=== PATIENT | male | born 1940 | race Caucasian/White ===

== ENCOUNTER → 2019-07-13 | Outpatient (CLI) | payer OTHER ==
[~2019-07-13] MED LIST: AMIO200T5 PO; METO25TA6 PO; RIVA20TA PO
== END | disposition home or self-care (01) ==
LOC: SHCH 10:50
PROVIDERS: ATTEND Internal Medicine Cardiovascular Disease
DX: I31.3 Pericardial effusion (noninflammatory) (principal); I48.0 Paroxysmal atrial fibrillation
CPT/HCPCS: 93306

== ENCOUNTER 2020-10-13 08:30 | Observation (INO) | payer OTHER ==
[~2020-10-13] VITALS: Ht 180.3 cm; Wt 82.0 kg
[~2020-10-13 08:30] MED LIST changes: -AMIO200T5 PO; +AMIO200T6 PO
[2020-10-13] MEDS ORDERED: AMIODARONE HCL 50 MG/ML 3 ML VIAL ONE (08:54)
[2020-10-13] MEDS ORDERED: ASPIRIN 325 MG TABLET ONE (08:54)
[2020-10-13 09:10] LABS: BASOPHILS % (AUTO) 1.6 % (0.0-5.0); EOSINOPHILS % (AUTO) 5.4 % (0.0-8.0); HEMATOCRIT 45.4 % (42-54); LYMPHOCYTES % (AUTO) 21.2 % (21.0-51.0); MEAN CORPUSCULAR HEMOGLOBIN 30.2 pg (27.0-33.0); MEAN CORPUSCULAR HGB CONC 33.7 g/dL (32.0-36.0); MEAN CORPUSCULAR VOLUME 89.7 fL (79-99); MONOCYTES % (AUTO) 9.7 % (3.0-13.0); PLATELET COUNT (AUTO) 151 K/uL (130-400); RED BLOOD CELL COUNT(AUTO) 5.06 MIL/uL (4.50-6.20); RED CELL DISTRIBUTION WIDTH 13.2 % (11.0-15.5); WHITE BLOOD COUNT (AUTO) 6.3 K/uL (4.8-10.8)
[2020-10-13 09:32] LABS: ALBUMIN 3.9 g/dL (3.5-5.0); B-TYPE NATRIURETIC PEPTIDE 29 pg/mL (0-100); BILIRUBIN,TOTAL 0.4 mg/dL (0.2-1.0); CREATININE 1.1 mg/dL (0.5-1.5); TOTAL PROTEIN, SERUM 7.3 g/dL (6.0-8.3)
[2020-10-13 09:42] LABS: PARTIAL THROMBOPLASTIN TIME 33.6 SEC (26.3-35.5)
[2020-10-13 10:04] LABS: INR 1.1 (0.85-1.15); PROTHROMBIN TIME 11.9 SEC (9.6-11.6)
[2020-10-13 10:07] LABS: MAGNESIUM 2.1 mg/dL (1.80-2.40); PHOSPHORUS 3.1 mg/dL (2.5-4.9)
[2020-10-13] MEDS: METOPROLOL TARTRATE 25 MG TAB PO SCH (11:15)
[2020-10-13] MEDS ORDERED: METOPROLOL TARTRATE 25 MG TAB ONE ×2 (12:55→20:29)
[2020-10-13] MEDS ORDERED: ONDANSETRON HCL 4 MG/2 ML VIAL IV PRN (13:45)
[2020-10-13] MEDS ORDERED: ACETAMINOPHEN 325 MG TAB PO PRN ×2 (13:45)
[2020-10-13 15:14] LABS: APPEARANCE,URINE Clear (CLEAR); BILIRUBIN,URINE Negative (NEGATIVE); COLOR,URINE Yellow (YELLOW); GLUCOSE, URINE (UA) Negative (NEGATIVE); KETONES,URINE Negative (NEGATIVE); LEUKOCYTE ESTERASE ,URINE Trace (NEGATIVE); NITRATE,URINE Negative (NEGATIVE); OCCULT BLOOD,URINE Small (NEGATIVE); PROTEIN,URINE Negative (NEGATIVE); UROBILINOGEN,URINE 0.2 mg/dL (0.2-1.0)
[2020-10-13 15:33] LABS: BACTERIA,URINE Rare /HPF (None Seen); MUCUS,URINE Rare LPF (None Seen); SQUAMOUS EPITHELIAL CELL,UR Few /HPF (0-2)
[2020-10-13 15:34] LABS: TRANSITIONAL EPI CELLS,URINE Rare /HPF (None Seen)
[2020-10-13] MEDS ORDERED: FAMOTIDINE/PF 20 MG/2 ML VIAL IV ONE (20:30)
[2020-10-13] MEDS ORDERED: METOPROLOL TARTRATE 25 MG TAB PO SCH (21:00)
[2020-10-13] MEDS: APIXABAN 5 MG TABLET PO SCH (21:00)
[2020-10-13] MEDS: FAMOTIDINE/PF 20 MG/2 ML VIAL IV SCH (21:00)
[2020-10-13] MEDS ORDERED: DIPHENHYDRAMINE HCL 25 MG CAPSULE ONE (21:01)
[2020-10-13] MEDS ORDERED: DIPHENHYDRAMINE HCL 25 MG CAPSULE PO PRN (21:15)
[2020-10-13 23:40] VITALS: BP 140/70
[2020-10-14 00:04] VITALS: BP 122/72
[2020-10-14] MEDS ORDERED: CYAN25002 (00:07)
[2020-10-14] MEDS ORDERED: FLUT16H NASAL (00:07)
[2020-10-14] MEDS ORDERED: FAMO20TA8 PO (00:07)
[2020-10-14] MEDS ORDERED: OMEP-420 PO (00:07)
[2020-10-14] MEDS ORDERED: TAMS-1 PO (00:07)
[2020-10-14] MEDS ORDERED: APIX5TAB PO (00:07)
[2020-10-14] MEDS ORDERED: DOCU100C33 PO (00:07)
[2020-10-14] MEDS ORDERED: FERR-82 PO (00:07)
[2020-10-14 00:49] LABS: CREATINE KINASE, TOTAL 145 U/L (21-232); MYOGLOBIN 42 ng/mL (10-92); TROPONIN I < 0.04 ng/mL (0.00-0.06)
[2020-10-14 04:04] VITALS: BP 113/65
[2020-10-14 06:30] LABS: CREATINE KINASE, TOTAL 132 U/L (21-232); MYOGLOBIN 55 ng/mL (10-92); TROPONIN I < 0.04 ng/mL (0.00-0.06)
[2020-10-14 08:00] VITALS: BP 120/68
[2020-10-14 08:27] LABS: CREATININE 1.2 mg/dL (0.5-1.5); MAGNESIUM 2.1 mg/dL (1.80-2.40); POTASSIUM 4.3 mmol/L (3.5-5.1)
[2020-10-14] MEDS ORDERED: AMIODARONE HCL 200 MG TABLET PO SCH (09:00)
[2020-10-14] MEDS: FAMOTIDINE/PF 20 MG/2 ML VIAL IV SCH (09:00)
[2020-10-14] MEDS: METOPROLOL TARTRATE 25 MG TAB PO SCH (09:38)
[2020-10-14] MEDS: APIXABAN 5 MG TABLET PO SCH (09:38)
[2020-10-14] MEDS ORDERED: DILTIAZEM HCL 120 MG CAP.SR.24H PO SCH (10:51)
[2020-10-14] MEDS ORDERED: DILT120C12 PO (11:01)
[2020-10-14 11:41] VITALS: BP 105/66
== END 2020-10-14 15:09 | disposition home or self-care (01) ==
LOC: EDH 08:30 → INTOOBSV 13:33 → EDHIP 13:33 → 4BH 23:21
PROVIDERS: ADMIT Internal Medicine; ATTEND Internal Medicine
DX: R07.89 Other chest pain (principal); I48.0 Paroxysmal atrial fibrillation; I10 Essential (primary) hypertension; N40.0 Benign prostatic hyperplasia without lower urinary tract symptoms; K21.9 Gastro-esophageal reflux disease without esophagitis; D64.9 Anemia, unspecified; K22.70 Barrett's esophagus without dysplasia; I31.3 Pericardial effusion (noninflammatory); Z87.891 Personal history of nicotine dependence; Z79.899 Other long term (current) drug therapy
CPT/HCPCS: 36415 ×2; 71045; 80048; 80053; 82550 ×3; 83735 ×2; 83874 ×2; 83880; 84100; 84484 ×3; 85025; 85610; 85651; 85730; 86140; 93005; 93306; 93356; 99285; G0378 ×25; J0282; J3490 ×2; Q0163; 81001

== ENCOUNTER → 2020-10-27 | Outpatient (CLI) | payer OTHER ==
[~2020-10-27] MED LIST changes: +APIX5TAB PO; +CYAN25002; +DILT120C12 PO; +DOCU100C33 PO; +FERR-82 PO; +FLUT16H NASAL; -METO25TA6 PO; +OMEP-420 PO; -RIVA20TA PO; +TAMS-1 PO
== END | disposition home or self-care (01) ==
LOC: RAH 18:20
PROVIDERS: ATTEND Internal Medicine Cardiovascular Disease
DX: Z13.6 Encounter for screening for cardiovascular disorders (principal)
CPT/HCPCS: 75571

== ENCOUNTER → 2020-12-19 | Outpatient (CLI) | payer OTHER ==
[~2020-12-19] VITALS: Ht 180.3 cm; Wt 83.5 kg
[~2020-12-19] MED LIST changes: +REGADENOSON 0.4 MG/5 ML PF SYG IVP SCH
== END | disposition home or self-care (01) ==
LOC: SHCH 08:42
PROVIDERS: ATTEND Internal Medicine Cardiovascular Disease
DX: I20.9 Angina pectoris, unspecified (principal); I48.0 Paroxysmal atrial fibrillation
CPT/HCPCS: 78452; 93017; 96374; A9500 ×2; J2785

== ENCOUNTER 2021-08-09 05:56 | Day surgery (SDC) | payer OTHER ==
[2021-08-02 15:05] LABS: BASOPHILS % (AUTO) 1.3 % (0.0-5.0); EOSINOPHILS % (AUTO) 2.4 % (0.0-8.0); HEMATOCRIT 43.2 % (42-54); MEAN CORPUSCULAR HEMOGLOBIN 30.1 pg (27.0-33.0); MEAN CORPUSCULAR HGB CONC 33.1 g/dL (32.0-36.0); MEAN CORPUSCULAR VOLUME 90.9 fL (79-99); MONOCYTES % (AUTO) 9.2 % (3.0-13.0); NEUTROPHILS % (AUTO) 62.2 % (40.0-77.0); PLATELET COUNT (AUTO) 159 K/uL (130-400); RED BLOOD CELL COUNT(AUTO) 4.75 MIL/uL (4.50-6.20); WHITE BLOOD COUNT (AUTO) 6.3 K/uL (4.8-10.8)
[2021-08-02 15:14] LABS: INR 1.05 (0.85-1.15); PROTHROMBIN TIME 11.4 SEC (9.6-11.6)
[2021-08-02 15:16] LABS: PARTIAL THROMBOPLASTIN TIME 31.9 SEC (26.3-35.5)
[2021-08-02 15:23] LABS: ALBUMIN 3.9 g/dL (3.5-5.0); BILIRUBIN,TOTAL 0.4 mg/dL (0.2-1.0); CREATININE 0.9 mg/dL (0.5-1.5); POTASSIUM 3.9 mmol/L (3.5-5.1); TOTAL PROTEIN, SERUM 7.2 g/dL (6.0-8.3)
[2021-08-08 14:12] VITALS: BP 145/72
[2021-08-09] VITALS (14 sets, daily range): BP systolic 116–147; BP diastolic 63–83
[~2021-08-09] VITALS: Ht 180.3 cm; Wt 81.7 kg
[~2021-08-09 05:56] MED LIST changes: -AMIO200T6 PO; +AMIO200T68 PO; -APIX5TAB PO; -DILT120C12 PO; -FLUT16H NASAL; +METH-812 PO; -REGADENOSON 0.4 MG/5 ML PF SYG IVP SCH; +ROPI1TAB13 PO
[2021-08-09] MEDS: LEVOFLOXACIN 500 MG/D5W 100 ML 100 ML IV SCH ×2 (06:00→08:09)
[2021-08-09] MEDS ORDERED: LACTATED RINGERS 1000ML 1,000 ML IV ONE (07:18)
[2021-08-09] MEDS ORDERED: LIDOCAINE PF 100MG/5ML (2%) SYRINGE 5ML ONE (07:28)
[2021-08-09] MEDS ORDERED: PROPOFOL 10 MG/ML 20ML VIAL IV ONE (07:28)
[2021-08-09] MEDS ORDERED: FENTANYL CITRATE PF 50 MCG/1 ML 2ML VIAL ONE (07:28)
[2021-08-09] MEDS ORDERED: IOHEXOL-350 50ML VIAL IV ONE (07:52)
[2021-08-09] MEDS ORDERED: MIDAZOLAM HCL 1 MG/ML 2ML VIAL ONE (07:59)
[2021-08-09] MEDS ORDERED: EPHEDRINE SULFATE 50 MG/ML AMPULE ONE (08:19)
[2021-08-09] MEDS ORDERED: GLYCOPYRROLATE 1 MG/5 ML SYRINGE ONE (08:26)
[2021-08-09] MEDS ORDERED: 0.9%NACL 10ML VIAL ONE (09:00)
[2021-08-09] MEDS ORDERED: PHENYLEPHRINE HCL 10 MG/ML 1ML VIAL IV ONE (09:00)
[2021-08-10] MEDS ORDERED: DICY20TA2 PO (05:56)
== END 2021-08-09 11:09 | disposition home or self-care (01) ==
LOC: DAH 05:56
PROVIDERS: ATTEND Urology Pediatric Urology
DX: C67.4 Malignant neoplasm of posterior wall of bladder (principal); C67.2 Malignant neoplasm of lateral wall of bladder; Z20.822 Contact with and (suspected) exposure to COVID-19; N35.812 Other bulbous urethral stricture, male; N28.1 Cyst of kidney, acquired; I48.91 Unspecified atrial fibrillation; K21.9 Gastro-esophageal reflux disease without esophagitis; M81.0 Age-related osteoporosis without current pathological fracture; Z79.899 Other long term (current) drug therapy; Z98.890 Other specified postprocedural states; Z79.01 Long term (current) use of anticoagulants
CPT/HCPCS: 36415; 52235; 52276; 71045; 74420; 80053; 85025; 85610; 85730; 87071; 87088; 87205; 87635; 93005; A4215 ×2; A4221; A4222; A4223; A4335; A4354; A4358; A4600; A4663; A6260; C1758 ×2; C1769; C9803; J2001; J2250; J2370; J2704; J3010; J3490 ×2; J7120; Q9967; J1956

== ENCOUNTER 2021-09-20 05:43 | Day surgery (SDC) | payer OTHER ==
[2021-09-14 13:26] LABS: BASOPHILS % (AUTO) 1.1 % (0.0-5.0); EOSINOPHILS % (AUTO) 2.6 % (0.0-8.0); HEMATOCRIT 42.1 % (42-54); LYMPHOCYTES % (AUTO) 21.8 % (21.0-51.0); MEAN CORPUSCULAR HEMOGLOBIN 29.3 pg (27.0-33.0); MEAN CORPUSCULAR HGB CONC 31.8 g/dL (32.0-36.0); MEAN CORPUSCULAR VOLUME 91.9 fL (79-99); MONOCYTES % (AUTO) 10.2 % (3.0-13.0); NEUTROPHILS % (AUTO) 63.3 % (40.0-77.0); PLATELET COUNT (AUTO) 211 K/uL (130-400); RED BLOOD CELL COUNT(AUTO) 4.58 MIL/uL (4.50-6.20); RED CELL DISTRIBUTION WIDTH 13.5 % (11.0-15.5); WHITE BLOOD COUNT (AUTO) 6.2 K/uL (4.8-10.8)
[2021-09-14 13:37] LABS: INR 1.08 (0.85-1.15); PROTHROMBIN TIME 11.7 SEC (9.6-11.6)
[2021-09-14 13:38] LABS: PARTIAL THROMBOPLASTIN TIME 30.5 SEC (26.3-35.5)
[2021-09-14 13:39] LABS: ALBUMIN 3.8 g/dL (3.5-5.0); BILIRUBIN,TOTAL 0.4 mg/dL (0.2-1.0); TOTAL PROTEIN, SERUM 7.1 g/dL (6.0-8.3)
[2021-09-19 09:20] VITALS: BP 143/74
[~2021-09-20] VITALS: Ht 180.3 cm; Wt 82.7 kg
[2021-09-20] VITALS (14 sets, daily range): BP systolic 127–144; BP diastolic 65–81
[~2021-09-20 05:43] MED LIST changes: -METH-812 PO
[2021-09-20] MEDS ORDERED: LACTATED RINGERS 1000ML 1,000 ML IV ONE (06:56)
[2021-09-20] MEDS: LEVOFLOXACIN 500 MG/D5W 100 ML 100 ML IV SCH ×2 (07:05→08:00)
[2021-09-20] MEDS ORDERED: ONDANSETRON 4MG INJ ONE (07:38)
[2021-09-20] MEDS ORDERED: SUCCINYLCHOLINE 200MG/10ML SYR ONE (07:38)
[2021-09-20] MEDS ORDERED: NEOSTIGMINE 5MG/5ML SYR IV ONE (07:38)
[2021-09-20] MEDS ORDERED: GLYCOPYRROLATE 1 MG/5 ML SYRINGE ONE (07:38)
[2021-09-20] MEDS ORDERED: MIDAZOLAM HCL 1 MG/ML 2ML VIAL ONE (07:38)
[2021-09-20] MEDS ORDERED: LIDOCAINE PF 100MG/5ML (2%) SYRINGE 5ML ONE (07:38)
[2021-09-20] MEDS ORDERED: DEXAMETHASONE SOD PHOSPHATE 10MG/ML 1ML VIAL ONE (07:38)
[2021-09-20] MEDS ORDERED: FENTANYL CITRATE PF 50 MCG/1 ML 2ML VIAL ONE ×2 (07:39→09:32)
[2021-09-20] MEDS ORDERED: PROPOFOL 10 MG/ML 20ML VIAL IV ONE (07:39)
[2021-09-20] MEDS ORDERED: ROCURONIUM 10MG/1ML SYR 10 MG/ML ML ONE (07:39)
[2021-09-20] MEDS ORDERED: FAMOTIDINE 20MG VIAL IV ONE (07:45)
[2021-09-20] MEDS ORDERED: IOHEXOL-350 50ML VIAL IV ONE (08:23)
== END 2021-09-20 10:55 | disposition home or self-care (01) ==
LOC: DAH 05:43
PROVIDERS: ATTEND Urology Pediatric Urology
DX: C67.4 Malignant neoplasm of posterior wall of bladder (principal); D09.0 Carcinoma in situ of bladder; N35.919 Unspecified urethral stricture, male, unspecified site; I48.91 Unspecified atrial fibrillation; K21.9 Gastro-esophageal reflux disease without esophagitis; Z79.899 Other long term (current) drug therapy; Z79.01 Long term (current) use of anticoagulants; Z98.890 Other specified postprocedural states
CPT/HCPCS: 36415; 71045; 74420; 80053; 85025; 85610; 85730; 87088; 87635; 88305; 88341; 88342; 93005; A4344; A4354; C1758; C1769; C9803; J0330; J1100; J1956; J2001; J2250; J2405; J2704; J2710; J3010; J3490; J7120; Q9967

== ENCOUNTER 2021-09-21 11:14 | Emergency (ER) | payer OTHER ==
[~2021-09-21] VITALS: Ht 180.3 cm; Wt 83.0 kg
[2021-09-21 11:27] VITALS: BP 132/71
[2021-09-21 13:19] LABS: BASOPHILS % (AUTO) 0.9 % (0.0-5.0); EOSINOPHILS % (AUTO) 1.2 % (0.0-8.0); HEMATOCRIT 43.2 % (42-54); MEAN CORPUSCULAR HEMOGLOBIN 29.7 pg (27.0-33.0); MEAN CORPUSCULAR HGB CONC 31.7 g/dL (32.0-36.0); MEAN CORPUSCULAR VOLUME 93.5 fL (79-99); MONOCYTES % (AUTO) 9.2 % (3.0-13.0); NEUTROPHILS % (AUTO) 73.1 % (40.0-77.0); PLATELET COUNT (AUTO) 22 K/uL (130-400); RED BLOOD CELL COUNT(AUTO) 4.62 MIL/uL (4.50-6.20); RED CELL DISTRIBUTION WIDTH 13.5 % (11.0-15.5); WHITE BLOOD COUNT (AUTO) 6.9 K/uL (4.8-10.8)
[2021-09-21 13:29] LABS: POTASSIUM 4.3 mmol/L (3.5-5.1)
[2021-09-21 13:29] LABS: APPEARANCE,URINE CLEAR (CLEAR); BILIRUBIN,URINE NEGATIVE (NEGATIVE); COLOR,URINE YELLOW (YELLOW); GLUCOSE, URINE (UA) NEGATIVE (NEGATIVE); KETONES,URINE NEGATIVE (NEGATIVE); LEUKOCYTE ESTERASE ,URINE TRACE (NEGATIVE); NITRATE,URINE NEGATIVE (NEGATIVE); OCCULT BLOOD,URINE LARGE (NEGATIVE); PROTEIN,URINE TRACE mg/dL (NEGATIVE); UROBILINOGEN,URINE 0.2 mg/dL (0.2-1.0)
[2021-09-21 13:33] LABS: ALBUMIN 3.8 g/dL (3.5-5.0); BILIRUBIN,TOTAL 0.6 mg/dL (0.2-1.0); TOTAL PROTEIN, SERUM 7.1 g/dL (6.0-8.3)
[2021-09-21 14:11] LABS: BACTERIA,URINE Rare /HPF (None Seen); MUCUS,URINE Rare LPF (None Seen); TRANSITIONAL EPI CELLS,URINE Rare /HPF (None Seen); WBC,URINE 0-1 /HPF (0-1)
== END 2021-09-21 14:45 | disposition home or self-care (01) ==
LOC: EDH 11:14
DX: T83.098A Other mechanical complication of other urinary catheter, initial encounter (principal); I48.91 Unspecified atrial fibrillation; K21.9 Gastro-esophageal reflux disease without esophagitis; Z79.899 Other long term (current) drug therapy; Z85.51 Personal history of malignant neoplasm of bladder; Y83.8 Other surgical procedures as the cause of abnormal reaction of the patient, or of later complication, without mention of misadventure at the time of the procedure; Y92.89 Other specified places as the place of occurrence of the external cause
CPT/HCPCS: 36415; 51702; 72192; 80053; 81001; 85025; 87088

== ENCOUNTER 2022-11-06 20:39 | Emergency (ER) | payer MEDICARE, OTHER ==
[~2022-11-06] VITALS: Ht 180.3 cm; Wt 78.0 kg
[2022-11-06 21:55] LABS: BASOPHILS % (AUTO) 0.5 % (0.0-5.0); EOSINOPHILS % (AUTO) 0.5 % (0.0-8.0); HEMATOCRIT 43.8 % (42-54); LYMPHOCYTES % (AUTO) 9.4 % (21.0-51.0); MEAN CORPUSCULAR HGB CONC 32.9 g/dL (32.0-36.0); MEAN CORPUSCULAR VOLUME 88.1 fL (79-99); MONOCYTES % (AUTO) 10.9 % (3.0-13.0); NEUTROPHILS % (AUTO) 76.1 % (40.0-77.0); PLATELET COUNT (AUTO) 74 K/uL (130-400); RED BLOOD CELL COUNT(AUTO) 4.97 MIL/uL (4.50-6.20); RED CELL DISTRIBUTION WIDTH 14.4 % (11.0-15.5); WHITE BLOOD COUNT (AUTO) 7.4 K/uL (4.8-10.8)
[2022-11-06 22:10] LABS: CREATININE 0.9 mg/dL (0.5-1.5); POTASSIUM 4.1 mmol/L (3.5-5.1)
[2022-11-06 22:15] LABS: ALBUMIN 3.1 g/dL (3.5-5.0); TOTAL PROTEIN, SERUM 6.4 g/dL (6.0-8.3)
[2022-11-06] MEDS ORDERED: IBUP-1493 PO (22:19)
[2022-11-06 22:50] VITALS: BP 142/74
== END 2022-11-06 22:52 | disposition home or self-care (01) ==
LOC: EDH 20:39
DX: R07.89 Other chest pain (principal); R07.81 Pleurodynia; I10 Essential (primary) hypertension; I48.91 Unspecified atrial fibrillation; Z79.899 Other long term (current) drug therapy; Z98.890 Other specified postprocedural states
CPT/HCPCS: 36415; 71046; 80053; 85025; 93005

== ENCOUNTER 2022-12-01 01:18 | Emergency (ER) | payer OTHER ==
[~2022-12-01] VITALS: Ht 180.3 cm; Wt 78.5 kg
[~2022-12-01 01:18] MED LIST changes: +IBUP-1493 PO
[2022-12-01 01:45] VITALS: BP 158/85
[2022-12-01 01:52] LABS: BASOPHILS % (AUTO) 0.7 % (0.0-5.0); EOSINOPHILS % (AUTO) 0.4 % (0.0-8.0); HEMATOCRIT 39.6 % (42-54); LYMPHOCYTES % (AUTO) 14.6 % (21.0-51.0); MEAN CORPUSCULAR HEMOGLOBIN 29.4 pg (27.0-33.0); MEAN CORPUSCULAR HGB CONC 33.1 g/dL (32.0-36.0); MONOCYTES % (AUTO) 8.3 % (3.0-13.0); NEUTROPHILS % (AUTO) 71.1 % (40.0-77.0); RED BLOOD CELL COUNT(AUTO) 4.45 MIL/uL (4.50-6.20); RED CELL DISTRIBUTION WIDTH 14.4 % (11.0-15.5); WHITE BLOOD COUNT (AUTO) 7.3 K/uL (4.8-10.8)
[2022-12-01 02:00] LABS: POTASSIUM 4.5 mmol/L (3.5-5.1)
[2022-12-01 02:04] LABS: ALBUMIN 3.5 g/dL (3.5-5.0); INR 1.01 (0.85-1.15); TOTAL PROTEIN, SERUM 6.4 g/dL (6.0-8.3)
[2022-12-01 02:05] LABS: PARTIAL THROMBOPLASTIN TIME 26.7 SEC (26.3-35.5)
[2022-12-01] MEDS ORDERED: HYDR30CR79 RC (02:16)
[2022-12-01 02:37] LABS: PLATELET COUNT (AUTO) 200 K/uL (130-400)
== END 2022-12-01 02:28 | disposition home or self-care (01) ==
LOC: EDH 01:18
DX: K64.9 Unspecified hemorrhoids (principal); I48.91 Unspecified atrial fibrillation; K62.5 Hemorrhage of anus and rectum; Z85.51 Personal history of malignant neoplasm of bladder; Z87.19 Personal history of other diseases of the digestive system; Z79.899 Other long term (current) drug therapy; Z98.890 Other specified postprocedural states
CPT/HCPCS: 36415; 80053; 85025; 85610; 85730

== ENCOUNTER 2023-03-13 00:28 | Emergency (ER) | payer OTHER ==
[~2023-03-13] VITALS: Ht 180.3 cm; Wt 83.0 kg
[~2023-03-13 00:28] MED LIST changes: +HYDR30CR79 RC; -ROPI1TAB13 PO; +ROPI1TAB46 PO
[2023-03-13 00:29] VITALS: BP 137/76; PULSE 76; RESP 20
== END 2023-03-13 01:06 | disposition left against medical advice (07) ==
LOC: EDH 00:28
DX: R21 Rash and other nonspecific skin eruption (principal); Z53.21 Procedure and treatment not carried out due to patient leaving prior to being seen by health care provider
CPT/HCPCS: 99281

== ENCOUNTER → 2023-03-26 | Outpatient (CLI) | payer OTHER | END | disposition home or self-care (01) | LOC: SHCH 09:37 | PROVIDERS: ATTEND Internal Medicine Cardiovascular Disease | DX: I87.2 Venous insufficiency (chronic) (peripheral) (principal); R60.0 Localized edema; I73.9 Peripheral vascular disease, unspecified; Z79.899 Other long term (current) drug therapy | CPT/HCPCS: 93970 ==

== ENCOUNTER 2023-05-24 01:33 | Emergency (ER) | payer OTHER, MEDICARE ==
[~2023-05-24] VITALS: Ht 180.3 cm; Wt 79.8 kg
[2023-05-24 01:36] VITALS: BP 132/86; PULSE 84; RESP 20
[2023-05-24] MEDS ORDERED: HYDROXYZINE 25 MG TABLET PO ONE (02:30)
[2023-05-24] MEDS ORDERED: CETIRIZINE HCL 5 MG TABLET PO SCH (02:30)
[2023-05-24] MEDS ORDERED: HYDR50CA50 PO (02:46)
[2023-05-24] MEDS ORDERED: CETI10CA5 PO (02:46)
== END 2023-05-24 02:56 | disposition home or self-care (01) ==
LOC: EDH 01:33
DX: R21 Rash and other nonspecific skin eruption (principal); I48.91 Unspecified atrial fibrillation; Z79.1 Long term (current) use of non-steroidal anti-inflammatories (NSAID); Z85.51 Personal history of malignant neoplasm of bladder

== ENCOUNTER 2023-06-18 06:08 | Day surgery (SDC) | payer OTHER ==
[2023-06-17 11:39] LABS: BASOPHILS # (AUTO) 0.08 K/uL (0.00-0.20); BASOPHILS % (AUTO) 1.3 % (0.0-5.0); EOSINOPHILS # (AUTO) 0.31 K/uL (0.00-0.70); IMMATURE GRANULOCYTE ABSOLUTE 0.18 K/uL (0-1); LYMPHOCYTES # (AUTO) 1.3 K/uL (1.0-4.8); LYMPHOCYTES % (AUTO) 21.1 % (21.0-51.0); MEAN CORPUSCULAR HEMOGLOBIN 28.9 pg (27.0-33.0); MEAN CORPUSCULAR VOLUME 90.2 fL (79-99); MONOCYTES # (AUTO) 0.8 K/uL (0.1-1.0); MONOCYTES % (AUTO) 12.1 % (3.0-13.0); NEUTROPHILS # (AUTO) 3.6 K/uL (1.8-7.7); NEUTROPHILS % (AUTO) 57.6 % (40.0-77.0); PLATELET COUNT (AUTO) 76 K/uL (130-400); RED BLOOD CELL COUNT(AUTO) 4.88 MIL/uL (4.50-6.20); RED CELL DISTRIBUTION WIDTH 13.8 % (11.0-15.5); WHITE BLOOD COUNT (AUTO) 6.3 K/uL (4.8-10.8)
[2023-06-17 11:49] LABS: CREATININE 0.9 mg/dL (0.5-1.5); POTASSIUM 4.6 mmol/L (3.5-5.1)
[2023-06-17 12:00] VITALS: BP 140/74; PULSE 75; RESP 16
[~2023-06-18] VITALS: Ht 180.3 cm; Wt 81.0 kg
[~2023-06-18 06:08] MED LIST changes: -AMIO200T68 PO; +CETI10CA5 PO; -CYAN25002; -DOCU100C33 PO; -FERR-82 PO; -HYDR30CR79 RC; +HYDR50CA50 PO; -IBUP-1493 PO; -OMEP-420 PO; -ROPI1TAB46 PO; -TAMS-1 PO
[2023-06-18 06:30] VITALS: BP 145/65; PULSE 82; RESP 17
[2023-06-18] MEDS ORDERED: 0.9%NACL 1000ML 1,000 ML IV ONE (07:27)
[2023-06-18] MEDS ORDERED: SODIUM BICARB 50MEQ 50ML VIAL 50 ML ONE (07:34)
[2023-06-18] MEDS ORDERED: LIDOCAINE HCL 400MG/20ML VIAL ONE (07:34)
[2023-06-18 08:20] VITALS: BP 151/81; PULSE 67; RESP 14
== END 2023-06-18 08:50 | disposition home or self-care (01) ==
LOC: DAH 06:08
PROVIDERS: ATTEND Internal Medicine Cardiovascular Disease
DX: Z45.09 Encounter for adjustment and management of other cardiac device (principal); I48.0 Paroxysmal atrial fibrillation; C67.9 Malignant neoplasm of bladder, unspecified; T50.905S Adverse effect of unspecified drugs, medicaments and biological substances, sequela; I10 Essential (primary) hypertension; E78.5 Hyperlipidemia, unspecified; D69.6 Thrombocytopenia, unspecified; K21.9 Gastro-esophageal reflux disease without esophagitis; Z79.899 Other long term (current) drug therapy; Z79.01 Long term (current) use of anticoagulants; Z98.890 Other specified postprocedural states
CPT/HCPCS: 80048; 85025; 36415; 93005; 33286; A4649; J3490 ×2; J7030; A4215; A4222; A4221; A4663; A4216; A4606; A4223 ×3

== ENCOUNTER 2024-02-19 23:40 | Emergency (ER) | payer OTHER ==
[~2024-02-19] VITALS: Ht 180.3 cm; Wt 79.4 kg
[2024-02-20 00:55] LABS: APPEARANCE,URINE CLEAR (CLEAR); BILIRUBIN,URINE NEGATIVE (NEGATIVE); GLUCOSE, URINE (UA) NEGATIVE (NEGATIVE); KETONES,URINE NEGATIVE (NEGATIVE); LEUKOCYTE ESTERASE ,URINE 500 Leu/uL (NEGATIVE); NITRATE,URINE NEGATIVE (NEGATIVE); OCCULT BLOOD,URINE MODERATE (NEGATIVE); PROTEIN,URINE NEGATIVE (NEGATIVE); UROBILINOGEN,URINE 0.2 mg/dL (0.2-1.0)
[2024-02-20 00:59] LABS: ADD UA MICROSCOPIC YES
[2024-02-20 01:00] LABS: COLOR,URINE Light-Yellow (YELLOW)
[2024-02-20 01:05] LABS: BACTERIA,URINE RARE /HPF (None Seen); RBC,URINE 0-1 /HPF (0-1); SQUAMOUS EPITHELIAL CELL,UR RARE /HPF (0-2); WBC,URINE TNTC /HPF (0-1)
[2024-02-20] MEDS: CEFTRIAXONE 1G VIAL IVPB ONE (01:06)
[2024-02-20 01:18] LABS: CREATININE 0.9 mg/dL (0.5-1.3); POTASSIUM 3.8 mmol/L (3.5-5.1)
[2024-02-20 01:21] LABS: BASOPHILS # (AUTO) 0.04 K/uL (0.00-0.20); BASOPHILS % (AUTO) 0.3 % (0.0-5.0); EOSINOPHILS # (AUTO) 0.04 K/uL (0.00-0.70); EOSINOPHILS % (AUTO) 0.3 % (0.0-8.0); HEMATOCRIT 41.5 % (42-54); IMMATURE GRANULOCYTE ABSOLUTE 0.05 K/uL (0-1); LYMPHOCYTES # (AUTO) 1.3 K/uL (1.0-4.8); LYMPHOCYTES % (AUTO) 11.2 % (21.0-51.0); MEAN CORPUSCULAR VOLUME 84.9 fL (79-99); MONOCYTES # (AUTO) 1.1 K/uL (0.1-1.0); MONOCYTES % (AUTO) 9.2 % (3.0-13.0); NEUTROPHILS % (AUTO) 78.6 % (40.0-77.0); PLATELET COUNT (AUTO) 176 K/uL (130-400); RED BLOOD CELL COUNT(AUTO) 4.89 MIL/uL (4.50-6.20); RED CELL DISTRIBUTION WIDTH 16.3 % (11.0-15.5); WHITE BLOOD COUNT (AUTO) 11.5 K/uL (4.8-10.8)
[2024-02-20] MEDS: 0.9%NACL 1000ML 2,382 ML IV ONE (01:37)
[2024-02-20] MEDS: MAG/ALUM/SIMETH 30 ML UDCUP PO ONE (02:35)
[2024-02-20] MEDS ORDERED: LEVO250T75 PO (02:39)
[2024-02-20 03:31] VITALS: BP 121/66; PULSE 98; RESP 19; O2SAT 96
== END 2024-02-20 03:41 | disposition home or self-care (01) ==
LOC: EDH 23:40
DX: N39.0 Urinary tract infection, site not specified (principal); I48.20 Chronic atrial fibrillation, unspecified; D72.829 Elevated white blood cell count, unspecified; Z79.899 Other long term (current) drug therapy; Z88.8 Allergy status to other drugs, medicaments and biological substances
CPT/HCPCS: 99284; 80048; 85025; 87040; 87086 ×2; 87186; 83605; 81001; 36415; 84145; 96374; 93005; J7030; J0696